=== PATIENT | male | born 1995 | race African-American/Black ===

== ENCOUNTER 2019-10-27 10:14 | Emergency (ER) | payer BC ==
[2019-10-27 10:25] VITALS: BP 122/77
--- NOTE | 2019-10-27 11:39 | ER Document Report ---
ED General - General Chief Complaint: Nausea/Vomiting/Diarrhea Stated Complaint: SORE THROAT,COUGH,DIARRHEA Time Seen by Provider: 10/27/19 10:51 Mode of Arrival: Ambulatory Information source: Patient - HPI Onset: Other - several days ago Onset/Duration: Gradual Quality of pain: Achy Severity: Moderate Pain Level: 3 Context: diffuse body aches, sniffles, sore throat Associated symptoms: Body/muscle aches, Nonproductive cough. denies: Fever Exacerbated by: Movement Relieved by: Remaining still - Related Data Allergies/Adverse Reactions: No Known Allergies Allergy (Unverified 10/27/19 11:08) Past Medical History - General Information source: Patient - Social History Smoking Status: Never Smoker Frequency of alcohol use: Occasional Drug Abuse: Marijuana Family History: Reviewed & Not Pertinent Patient has homicidal ideation: No Review of Systems - Review of Systems Constitutional: Malaise. denies: Chills, Fever Cardiovascular: Chest pain. denies: Palpitations Respiratory: Cough. denies: Short of breath Physical Exam - Vital signs Vitals: Temp Pulse Resp BP Pulse Ox 98.3 F 64 16 122/77 96 10/27/19 10:23 10/27/19 10:23 10/27/19 10:23 10/27/19 10:23 10/27/19 10:23 Interpretation: Normal - General General appearance: Appears well, Alert - HEENT Head: Normocephalic, Atraumatic Eyes: Normal Pupils: PERRL Sinus: Normal Nasal: Normal Mouth/Lips: Normal Mucous membranes: Moist Pharynx: Erythema. No: Exudate Neck: Normal - Respiratory Respiratory status: No respiratory distress Chest status: Nontender Breath sounds: Normal Chest palpation: Normal - Cardiovascular Rhythm: Regular Heart sounds: Normal auscultation Murmur: No - Abdominal Inspection: Normal Distension: No distension Bowel sounds: Normal Tenderness: Nontender Organomegaly: No organomegaly - Back Back: Normal, Nontender - Extremities General upper extremity: Normal inspection, Nontender, Normal color, Normal ROM, Normal temperature General lower extremity: Normal inspection, Nontender, Normal color, Normal ROM, Normal temperature, Normal weight bearing. No: Diana's sign - Neurological Neuro grossly intact: Yes Cognition: Normal Orientation: AAOx4 [place] Coma Scale Eye Opening: Spontaneous [place] Coma Scale Verbal: Oriented [place] Coma Scale Motor: Obeys Commands [place] Coma Scale Total: 15 Speech: Normal Motor strength normal: LUE, RUE, LLE, RLE Sensory: Normal - Psychological Associated symptoms: Normal affect, Normal mood - Skin Skin Temperature: Warm Skin Moisture: Dry Skin Color: Normal Course - Re-evaluation Re-evalutation: 10/27/19 11:36 will test for covid. appears to have viral syndrome. no known covid exposures - Vital Signs Vital signs: Temp Pulse Resp BP Pulse Ox 98.3 F 64 16 122/77 96 10/27/19 11:08 10/27/19 10:23 10/27/19 10:23 10/27/19 10:23 10/27/19 10:23 Discharge - Discharge Clinical Impression: Viral syndrome, Educated about COVID-19 virus infection Condition: Stable Disposition: HOME, SELF-CARE Instructions: Viral Syndrome ([facility]) Additional Instructions: Please quarantine yourself till Covid tests are resulted Prescriptions: Tramadol HCl [Ultram] 50 mg PO Q6 PRN 3 Days #10 tablet PRN Reason: Forms: Return to Work Referrals: [facility] [Provider Group] - Follow up as needed
== END 2019-10-27 11:58 | disposition home or self-care (01) ==
LOC: ER 10:14
DX: B34.9 Viral infection, unspecified (principal); Z20.828 Contact with and (suspected) exposure to other viral communicable diseases; J02.9 Acute pharyngitis, unspecified; M79.10 Myalgia, unspecified site; R05 Cough; R53.81 Other malaise; R07.9 Chest pain, unspecified
CPT/HCPCS: 99283; 36415; 87635; C9803

== ENCOUNTER 2020-01-10 08:47 | Emergency (ER) | payer BC ==
[2020-01-10 08:56] VITALS: BP 125/69
--- NOTE | 2020-01-10 10:14 | ER Document Report ---
ED Oral Problem - General Chief Complaint: Toothache Stated Complaint: ABSCESS/MOUTH,GUMLINE Time Seen by Provider: 01/10/20 10:02 Primary Care Provider: [facility] [Provider Group] - Follow up as needed [facility] [Provider Group] - Follow up as needed Mode of Arrival: Ambulatory Information source: Patient Notes: 24-year-old male presented to ED for dental pain to tooth #8 he states he has had this tooth repaired as a child and now it is sore again. States it is been hurting for 2 to 3 days this time. He also has an aphthous ulcer just above this tooth. There is mild redness to the gingiva around the tooth. Is alert oriented respirations regular nonlabored speaking in full sentences REVIEW OF SYSTEMS: CONSTITUTIONAL : Denies fever, chills, or sweats. Denies recent illness. EENT: Patient complains of dental pain to tooth #8 with pain to the gums above this tooth. Denies eye, ear, throat, pain or symptoms. Denies nasal or sinus congestion. CARDIOVASCULAR: Denies chest pain. RESPIRATORY: Denies cough, cold, or chest congestion. Denies shortness of breath, difficulty breathing, or wheezing. GASTROINTESTINAL: Denies abdominal pain. Denies nausea, vomiting, or diarrhea. Denies constipation. Last BM: GENITOURINARY: Denies difficulty urinating, painful urination, burning, frequency, or blood in urine. FEMALE GENITOURINARY: Denies vaginal bleeding, abnormal or irregular periods. LMP: MUSCULOSKELETAL: Denies neck or back pain or joint pain or swelling. SKIN: Denies rash or skin lesions. HEMATOLOGIC : Denies easy bruising or bleeding. LYMPHATIC: Denies swollen, enlarged glands. NEUROLOGICAL: Denies altered mental status or loss of consciousness. Denies headache. Denies weakness or paralysis or loss of use of either side. Denies problems with gait or speech. Denies sensory or motor loss. PSYCHIATRIC: Denies anxiety or stress or depression. ALL OTHER SYSTEMS REVIEWED AND NEGATIVE. PHYSICAL EXAMINATION: GENERAL: Well-appearing, well-nourished and in no acute distress. HEAD: Atraumatic, normocephalic. EYES: Pupils equal round extraocular movements intact, conjunctiva are normal. ENT: Nares patent patient has redness to the gingiva surrounding tooth #8 with an aphthous ulcer above tooth #8. NECK: Normal range of motion LUNGS: No respiratory distress Musculoskeletal: Normal range of motion NEUROLOGICAL: Normal speech, normal gait. PSYCH: Normal mood, normal affect. SKIN: Warm, Dry, normal turgor, no rashes or lesions noted. - HPI Patient complains to provider of: Jaw pain, Toothache Onset: Other - 2 to 3 days Onset: Gradual Quality of pain: Burning, Sharp Severity: Moderate Pain Level: 3 Associated symptoms: Toothache Worsened by: Nothing Relieved by: Nothing Similar symptoms previously: Yes Recently seen / treated by doctor/dentist: No - Related Data Allergies/Adverse Reactions: No Known Allergies Allergy (Verified 01/10/20 09:02) Past Medical History - General Information source: Patient - Social History Smoking Status: Never Smoker Frequency of alcohol use: Occasional Drug Abuse: Marijuana Lives with: Family Family History: Reviewed & Not Pertinent Patient has homicidal ideation: No - Past Medical History Cardiac Medical History: Reports: None Pulmonary Medical History: Reports: Hx Asthma EENT Medical History: Reports: None Neurological Medical History: Reports: None Endocrine Medical History: Reports: None Renal/ Medical History: Reports: None Malignancy Medical History: Reports None GI Medical History: Reports: None Musculoskeletal Medical History: Reports None Skin Medical History: Reports None Psychiatric Medical History: Reports: None Traumatic Medical History: Reports: None Infectious Medical History: Reports: None Surgical Hx: Negative Past Surgical History: Reports: None - Immunizations Immunizations up to date: Yes Hx Diphtheria, Pertussis, Tetanus Vaccination: Yes Physical Exam - Vital signs Vitals: Temp Pulse Resp BP Pulse Ox 98.3 F 78 18 125/69 97 01/10/20 08:55 01/10/20 08:55 01/10/20 08:55 01/10/20 08:55 01/10/20 08:55 Course - Re-evaluation Re-evalutation: 01/10/20 10:20 Presentation is most consistent with likely an infected tooth. Airway is patent. Vitals within normal limits. Patient is able swallow without any difficulty. There is no significant facial swelling. No evidence of Kevin angina, apical abscess, or airway obstruction. Patient will be started on antibiotics. I've instructed to follow-up with dentistry as earliest ability for definitive management. At this time will discharge with return precautions and follow-up recommendations. Verbal discharge instructions given a the bedside and opportunity for questions given. Medication warnings reviewed. Patient is in agreement with this plan and has verbalized understanding of return precautions and the need for primary care follow-up in the next 24-72 hours. - Vital Signs Vital signs: Temp Pulse Resp BP Pulse Ox 98.3 F 78 18 125/69 97 01/10/20 08:55 01/10/20 08:55 01/10/20 08:55 01/10/20 08:55 01/10/20 08:55 Discharge - Discharge Clinical Impression: Toothache, Aphthous ulcer Condition: Stable Disposition: HOME, SELF-CARE Additional Instructions: TOOTHACHE: Your pain is due to dental decay. The tooth must be repaired in order for you to feel better. You will, therefore, be referred to a dentist. We do not have dentists on the staff at [facility]. Severe swelling or drainage around a tooth usually means a dental abscess. This also requires evaluation and treatment by the dentist, but antibiotics may be prescribed while awaiting dental treatment. You should be rechecked immediately if you develop major swelling of the face, increasing pain, a lump in the jaw or gums, headache, difficulty swallowing, or fever. An aphthous ulcer is typically a recurrent round or oval sore or ulcer inside the mouth on an area where the skin is not tightly bound to the underlying bone, such as on the inside of the lips and cheeks or underneath the tongue. Aphthous ulcers can also affect the genitalia in males and females. PENICILLIN V K: You have been given a prescription for Penicillin VK. Your physician has determined that this is the best antibiotic for your condition. Pen VK can be taken with meals, however more of the antibiotic gets into the bloodstream if it's taken on an empty stomach. Penicillin usually has no side effects. However, allergy to penicillins is common. If you have had an allergic reaction to any drug of the penicillin family, you should never take any other penicillin. Notify your doctor at once if you develop hives, itching, swelling, faintness, or shortness of breath. Salt and soda solution 1 quart of water 1 tablespoon of salt 1 teaspoon of baking soda Mixed 3 ingredients together and boil for 1 minute Placed in a covered quart jar Use 1/2 ounce of cold solution to gargle 3 times a day Have also given you Magic mouthwash. This should clear up your ulcer if it does not clear up your ulcer please follow-up with your primary care or dentist and ask for prescription for an antiviral as that would be the other cause for your aphthous ulcer. FOLLOW-UP CARE: You have been referred for follow-up care to the dentists listed below. Call the dentists office for an appointment as you were instructed or within the next two days. If you experience worsening or a significant change in your symptoms, notify the physician immediately or return to the Emergency Department at any time for re-evaluation. [facility] [address] [place] [address] [facility] [place] [address] [facility] [address] [facility] [address] [email or web address] [address] [place] [address] Saturday- 8:00am to 5:00 pm Will see patients from other [facility]. Charges based on income and family size and accepts Medicare, Medicaid, and Insurances Will pull molars [facility] [place] [address] Hours of Operation 8:00 am - 4:30 pm weekdays The following dental offices accept Medicaid: [facility] Dr. Brandon Dr. Niño Dr. Chen Dr. Chavez [place] Moran, Joshua, and Zay oral surgery Dr. Arteaga ([place]) Dr. Leggett ([place]ury Snider) [facility] Drs. Cantrell ilan Valentine ([place]) Dr. Aviles ([place]) [facility] Dr. Boland ([place]) Drs. Soto and ([place]) Medicaid Care Line Prescriptions: Nystatin/Dexameth/Diphen [Magic Mouthwash ([facility] Formula) Susp] 5 ml PO QID #120 ml Penicillin V Potassium [Penicillin Vk 500 mg Tablet] 500 mg PO BID #20 tablet Forms: Smoking Cessation Education, Return to Work Referrals: [facility] [Provider Group] - Follow up as needed [facility] [Provider Group] - Follow up as needed
== END 2020-01-10 10:15 | disposition home or self-care (01) ==
LOC: ER 08:47
DX: K12.0 Recurrent oral aphthae (principal); K08.89 Other specified disorders of teeth and supporting structures; J45.909 Unspecified asthma, uncomplicated
CPT/HCPCS: 99283

== ENCOUNTER 2020-03-24 15:29 | Emergency (ER) | payer BC ==
--- NOTE | 2020-03-24 15:58 | ER Document Report ---
ED Medical Screen (RME) - General Chief Complaint: Chest Pain Stated Complaint: ANXIOUS,CHEST PAIN Time Seen by Provider: 03/24/20 15:45 Mode of Arrival: Ambulatory Information source: Patient Notes: 24-year-old male patient with history of anxiety and asthma presenting to the emergency department with a week history of chest pain. Patient reports he thinks this is asthma acting up however he has not had an asthma exacerbation since he was around 12 years old. Chest pain is reproducible. He has clear and equal lung sounds. He is in no acute distress. I have greeted and performed a rapid initial assessment of this patient. A comprehensive ED assessment and evaluation of the patient, analysis of test results and completion of the medical decision making process will be conducted by additional ED providers. I have specifically instructed the patient or family members with the patient to immediately return to any nursing staff should anything change in the patient's condition or with their chief complaint. - Related Data Allergies/Adverse Reactions: No Known Allergies Allergy (Verified 03/24/20 15:44) Past Medical History Pulmonary Medical History: Reports: Hx Asthma - Immunizations Immunizations up to date: Yes Hx Diphtheria, Pertussis, Tetanus Vaccination: Yes Physical Exam - Vital signs Vitals: Temp Pulse Resp BP Pulse Ox 98.3 F 78 16 129/69 H 98 03/24/20 15:49 03/24/20 15:49 03/24/20 15:49 03/24/20 15:49 03/24/20 15:49 Course - Vital Signs Vital signs: Temp Pulse Resp BP Pulse Ox 98.3 F 78 16 129/69 H 98 03/24/20 15:49 03/24/20 15:49 03/24/20 15:49 03/24/20 15:49 03/24/20 15:49
--- NOTE | 2020-03-24 16:37 | RADIOLOGY REPORT (SQ) ---
EXAM DESCRIPTION: CHEST 2 VIEWS IMAGES COMPLETED DATE/TIME: 03/24/2020 4:26 pm REASON FOR STUDY: chest pain COMPARISON: None. TECHNIQUE: Frontal and lateral radiographic views of the chest acquired. NUMBER OF VIEWS: Two view. LIMITATIONS: None. FINDINGS: LUNGS AND PLEURA: No opacities, masses or pneumothorax. No pleural effusion. MEDIASTINUM AND HILAR STRUCTURES: No masses or contour abnormalities. HEART AND VASCULAR STRUCTURES: Heart normal size. No evidence for failure. BONES: No acute findings. HARDWARE: None in the chest. OTHER: No other significant finding. IMPRESSION: NO SIGNIFICANT RADIOGRAPHIC FINDING IN THE CHEST. TECHNICAL DOCUMENTATION: JOB ID: [id number] 2010 [employer]- All Rights Reserved Reading location - IP/workstation name: [email or web address]
--- NOTE | 2020-03-24 18:37 | ER Document Report ---
ED General - General Chief Complaint: Chest Wall Pain Stated Complaint: ANXIOUS,CHEST PAIN Time Seen by Provider: 03/24/20 15:45 Mode of Arrival: Ambulatory - HPI Notes: Chief complaint: Chest pain History of present illness: 24-year-old male with history of mild childhood asthma currently on no medications with no known allergies presents now with 1 week history of intermittent right-sided parasternal pain aggravated by movement or deep breathing. No fever, chills, cough or hemoptysis. No discrete injury but patient has been lifting weights. He denies any known history of thromboembolic disease. He does not smoke tobacco but says he occasionally uses marijuana. He has tried some Tylenol [id number] with partial relief of his discomfort. - Related Data Allergies/Adverse Reactions: No Known Allergies Allergy (Verified 03/24/20 15:44) Past Medical History - General Information source: Patient - Social History Smoking Status: Never Smoker Chew tobacco use (# tins/day): No Frequency of alcohol use: Occasional Drug Abuse: Marijuana Occupation: Works in a fast food restaurant Family History: Reviewed & Not Pertinent - Past Medical History Cardiac Medical History: Denies: Hx Coronary Artery Disease, Hx DVT, Hx Pulmonary Embolism Pulmonary Medical History: Reports: Hx Asthma Endocrine Medical History: Denies: Hx Diabetes Mellitus Type 1, Hx Diabetes Mellitus Type 2 Surgical Hx: Negative - Immunizations Immunizations up to date: Yes Hx Diphtheria, Pertussis, Tetanus Vaccination: Yes Review of Systems - Review of Systems Notes: Constitutional: Negative for fever. HENT: Negative for sore throat. Eyes: Negative for visual changes. Cardiovascular: As per HPI. Respiratory: As per HPI. Gastrointestinal: Negative for abdominal pain, vomiting or diarrhea. Genitourinary: Negative for dysuria. Musculoskeletal: Negative for back pain. Skin: Negative for rash. Neurological: Negative for headaches, weakness or numbness. 10 point ROS negative except as marked above and in HPI. Physical Exam - Vital signs Vitals: Temp Pulse Resp BP Pulse Ox 98.3 F 78 16 129/69 H 98 03/24/20 15:49 03/24/20 15:49 03/24/20 15:49 03/24/20 15:49 03/24/20 15:49 - Notes Notes: GENERAL: Well-developed well-nourished male approximately stated age appearing in no acute distress. SKIN: Good turgor no rashes. HEAD: Normocephalic atraumatic. EYES: PERRLA. EOMI. Conjunctivae and sclerae clear. EARS: CANALS AND TMS CLEAR. NOSE: CLEAR. MOUTH: Moist mucosa. Good dentition. No stridor or edema. No drooling. NECK: Supple. No masses or thyromegaly. No adenopathy. Carotids 2+ without bruits. No JVD. BACK: Symmetrical without tenderness. CHEST: Respirations unlabored. Breath sounds clear and symmetrical. HEART: Patient's pain is exactly reproducible with palpation over multiple costochondral junctions on the right side. Regular rhythm. No murmur gallop or rub. ABDOMEN: Soft nontender without masses, organomegaly or rebound. Bowel sounds normally active. No bruits. GENITALIA: Deferred. EXTREMITIES: No edema. No calf tenderness. Cap refill less than 1.5 seconds. Dorsalis pedis and posterior tibial pulses 3+ and symmetrical. NEUROLOGICAL: GCS 15. Alert and oriented x3. Normal gait. Fluent speech. Cranial nerves II through XII intact. Sensorimotor and cerebellar normal. Nor mal tone. PSYCHIATRIC: Appropriate affect. Course - Re-evaluation Re-evalutation: 03/24/20 18:36 Patient clearly has acute costochondritis. Midlevel provider triage had done at troponin level and this was predictably normal. His chest x-ray is also normal. His EKG is unremarkable. I discussed findings and recommendations with patient at length. Findings, clinical impression and plan of treatment have been discussed with patient/family. Understanding of current findings and recommendations has been acknowledged by them and there is agreement regarding disposition and follow-up. - Vital Signs Vital signs: Temp Pulse Resp BP Pulse Ox 98.3 F 78 16 129/69 H 98 03/24/20 15:49 03/24/20 15:49 03/24/20 15:49 03/24/20 15:49 03/24/20 15:49 - Diagnostic Test Radiology reviewed: Image reviewed, Reports reviewed Radiology results interpreted by me: 03/24/20 18:35 Chest X-Ray 03/24/20 15:54 IMPRESSION: NO SIGNIFICANT RADIOGRAPHIC FINDING IN THE CHEST. - EKG Interpretation by Me Additional EKG results interpreted by me: 03/24/20 18:36 Twelve-lead EKG reviewed by me contemporaneously: 1540 hrs. Indication for study: Chest pain history weakness Rhythm: Normal sinus Rate: 69 Intervals: Normal QRS axis: Normal +[address]/T wave changes: None Comparison with prior tracing: None Interpretation: Normal tracing Discharge - Discharge Clinical Impression: Acute costochondritis Condition: Stable Disposition: HOME, SELF-CARE Instructions: Anti-Inflammatory Medication ([facility]), Chest Wall Pain ([facility]) Prescriptions: Ibuprofen [Motrin 600 mg Tablet] 600 mg PO Q8HP PRN 10 Days #30 tablet PRN Reason: Forms: Return to Work Referrals: [facility] [Provider Group] - Follow up as needed
[2020-03-24 18:47] VITALS: BP 135/72
--- NOTE | 2020-03-24 19:01 | EKG REPORT ---
SEVERITY:- NORMAL ECG - SINUS RHYTHM : Confirmed by: Nany Quinn MD 24-Mar-2020 19:00:58
== END 2020-03-24 18:48 | disposition home or self-care (01) ==
LOC: ER 15:29
DX: M94.0 Chondrocostal junction syndrome [Tietze] (principal); J45.909 Unspecified asthma, uncomplicated; F12.10 Cannabis abuse, uncomplicated
CPT/HCPCS: 36415; 71046; 84484; 93005; 93010; 99285